=== PATIENT | female | born 1980 | race Caucasian/White ===

== ENCOUNTER 2024-06-03 17:36 | Emergency (ER) | payer SELFPAY ==
[~2024-06-03] VITALS: Ht 165.1 cm; Wt 97.1 kg
[2024-06-03] MEDS ORDERED: NS 1,000 ML IV SCH (17:45)
[2024-06-03] MEDS ORDERED: hydrALAZINE 20 MG/ML 1 ML VIAL IV ONE (18:00)
[2024-06-03 18:10] LABS: BASO # 0.03 K/mm3 (0.02-0.10); EOS # 0.19 K/mm3 (0.04-0.40); EOS % 2.1 % (1.0-5.0); HEMATOCRIT 37.3 % (37.0-47.0); HEMOGLOBIN 12.4 g/dL (12.5-16.0); LYMPH# 2.11 K/mm3 (1.50-4.00); MEAN CELL VOLUME 84 fl (78-100); MEAN CORPUSCULAR HEMOGLOBIN 28 pg (27-31); MEAN CORPUSCULAR HGB CONC 33 g/dL (33-37); MEAN PLATELET VOLUME 10.1 fl (7.4-10.4); MONO # 0.62 K/mm3 (0.20-0.80); NEU # 5.88 K/mm3 (1.40-6.50); PLATELET COUNT 235 K/mm3 (130-400); RED BLOOD COUNT 4.43 M/mm3 (4.10-5.30); RED CELL DISTRIBUTION WIDTH 14.7 % (11.5-14.5); WHITE BLOOD COUNT 8.9 K/mm3 (4.8-10.8)
[2024-06-03 18:16] LABS: CALCIUM 10.2 mg/dL (8.3-10.5)
[2024-06-03 18:17] LABS: ALBUMIN 4.4 g/dL (3.5-5.0); GLUCOSE 96 mg/dL (65-105); SODIUM 139 mmol/L (136-145); TOTAL PROTEIN 7.6 g/dL (6.4-8.3)
[2024-06-03 18:18] LABS: CARBON DIOXIDE 22 mmol/L (22-29)
[2024-06-03 18:19] LABS: TOTAL BILIRUBIN 0.3 mg/dL (0.2-1.2)
[2024-06-03 18:22] LABS: AST-SGOT 15 U/L (5-34)
[2024-06-03 18:26] LABS: ALT/SGPT 18 U/L (0-55); LIPASE 22 U/L (8-78)
[2024-06-03 18:33] LABS: TROPONIN-I < 0.030 ng/mL (0.00-0.033)
[2024-06-03 18:42] LABS: URINE APPEARANCE SLIGHTLY CLOUDY (CLEAR); URINE COLOR YELLOW (YELLOW)
[2024-06-03 18:43] LABS: PH-URINE 5.5 (5.0 - 8.0); URINE BILIRUBIN NEGATIVE (NEGATIVE); URINE BLOOD NEGATIVE (NEGATIVE); URINE GLUCOSE NEGATIVE (NEGATIVE); URINE KETONE NEGATIVE (NEGATIVE); URINE LEUKOCYTE ESTERASE 1+ (NEGATIVE); URINE NITRATE NEGATIVE (NEGATIVE); URINE PROTEIN(semi-quant) NEGATIVE (NEGATIVE)
[2024-06-03 18:57] LABS: URINE MUCUS PRESENT (NOT PRESENT)
[2024-06-03] MEDS ORDERED: LABETALOL HCL100 MG PO (19:51)
[2024-06-03 20:40] VITALS: BP 139/91
== END 2024-06-03 20:40 | disposition home or self-care (01) ==
LOC: ED 17:36
PROVIDERS: Family Medicine
DX: R07.89 Other chest pain (principal); I10 Essential (primary) hypertension
CPT/HCPCS: J1920; J7030